=== PATIENT | female | born 1985 | race African-American/Black ===

== ENCOUNTER 2021-07-22 15:10 | Emergency (ER) | payer OTHER ==
[~2021-07-22] VITALS: Ht 162.6 cm; Wt 82.0 kg
[2021-07-22] MEDS ORDERED: FLUORESCEIN SODIUM 1MG/STRIP BOTHEYE ONE (15:45)
[2021-07-22] MEDS ORDERED: TETRACAINE 0.5% OPHTH DROPS 4ML BOTHEYE ONE (15:45)
[2021-07-22] MEDS ORDERED: ERYT1OIN6 RIGHTEYE (16:15)
[2021-07-22] MEDS ORDERED: OFLO5DRO3 RIGHTEYE (16:15)
[2021-07-22 16:36] VITALS: BP 152/75
== END 2021-07-22 16:38 | disposition home or self-care (01) ==
LOC: ER 15:10
DX: H10.89 Other conjunctivitis (principal); J45.909 Unspecified asthma, uncomplicated
CPT/HCPCS: 99283